=== PATIENT | male | born 2000 | race African-American/Black ===

== ENCOUNTER 2019-12-08 00:40 | Emergency (ER) | payer OTHER ==
[~2019-12-08] VITALS: Ht 188 cm; Wt 142.4 kg
[2019-12-08] MEDS ORDERED: IBUPROFEN 800 MG TABLET PO ONE (01:00)
[2019-12-08] MEDS ORDERED: IBUPROFEN 800 MG TABLET ONE (01:04)
[2019-12-08 01:25] VITALS: BP 133/78
== END 2019-12-08 01:26 ==
LOC: ER 00:44
DX: S39.92XA Unspecified injury of lower back, initial encounter (principal); V47.5XXA Car driver injured in collision with fixed or stationary object in traffic accident, initial encounter; Y92.411 Interstate highway as the place of occurrence of the external cause
CPT/HCPCS: A4663